=== PATIENT | female | born 1980 | race Caucasian/White ===

== ENCOUNTER 2016-09-09 18:22 | Emergency (ER) | payer BC ==
[~2016-09-09] VITALS: Ht 162.6 cm; Wt 118.6 kg
[~2016-09-09 18:22] MED LIST: HMLI SC; INSUINJ SC; SERT25TA PO; [UNRECOGNIZED DRUG - CODE] PO
[2016-09-09 18:25] VITALS: TEMP 37.1; Ht 162.6 cm; Wt 118.6 kg
[2016-09-09] MEDS ORDERED: ALUMINUM/MAGNESIUM SUSP 30 ML UDC PO STA (18:32)
[2016-09-09] MEDS ORDERED: RANITIDINE HCL 150 MG TAB PO STA (18:32)
[2016-09-09] MEDS ORDERED: ACETAMINOPHEN 325 MG TAB PO STA (18:32)
[2016-09-09] MEDS ORDERED: SODIUM CHLORIDE 0.9% 1000ML 1,000 ML IV STA (18:32)
--- NOTE | 2016-09-09 18:48 | EMERGENCY ROOM VISIT NOTE ---
History Report prepared by [place]: Aubrey Sandoval Under the Supervision of: Dr. Sathish Aponte M.D. First contact with patient: 18:29 Chief Complaint: GI ASSESSMENT Stated Complaint: NAUSEA,STOMACH PRESSURE,CHEST PRESSURE History of Present Illness The patient is a 35 year old female who presents to the Emergency Room with complaints of constant chest "pressure" beginning today. She is 10 weeks . This is her fourth . She has had two successful births. The patient states that her symptoms began with diarrhea and an abdominal "pressure " in the upper abdomen, which moved into her chest. Her abdominal pressure was resolved after taking Gas-X, and her diarrhea has improved. She denies any fevers, vomiting, or urinary symptoms. The patient rates her current discomfort as a 5/10 in severity. She also complains of SOB, and hand tingling. She is unsure if her symptoms are related to anxiety. The patient notes that her children have had a stomach bug this past week. She notes that she cannot seem to get enough sleep--she is always tired. She has a history of type II diabetes , and a cholecystectomy. Source of History: patient Onset: today Position: chest Symptom Intensity: 5/10 in severity Quality: pressure Timing: constant Associated Symptoms: + SOB, + abdominal pain (resolved "pressure"), + diarrhea (improving), No fevers, No urinary symptoms, No vomiting Note: The patient also complains of hand tingling. Review of Systems See HPI for pertinent positives & negatives. A total of 10 systems reviewed and were otherwise negative. Past Medical & Surgical Medical Problems: (1) Diab Blanca Wo Compl, Type Ii Or Unspec Type, Not Uncntrld (2) Elective induction of labor planned (3) Morbid obesity (4) Non-reactive NST (non-stress test) Family History No pertinent family history stated. Social History Smoking Status: Never Smoker Alcohol Use: none Drug Use: none Marital Status: Housing Status: lives with family Occupation Status: employed Current/Historical Medications Scheduled Insulin Aspart (Novolog), 10 UNITS SQ QPM Insulin Human NPH (Novolin N), 60 UNITS SQ HS Vit W/ Ferrous Fumara ( Low Iron), 1 TAB PO DAILY Allergies Coded Allergies: Penicillins (Verified Allergy, Unknown, 04/03/15) Physical Exam Vital Signs Date Time Temp Pulse Resp B/P Pulse Ox O2 Delivery O2 Flow Rate FiO2 5/25/17 20:18 77 17 121/67 99 Room Air 09/09/16 19:07 87 09/09/16 18:25 37.1 100 20 123/84 100 Room Air Physical Exam GENERAL: Patient is in no acute distress. HEENT: No acute trauma, normocephalic atraumatic, mucous membranes moist, no nasal congestion, no scleral icterus. NECK: No stridor, no adenopathy, no meningismus, trachea is midline. LUNGS: Clear to auscultation bilaterally, no wheeze, no rhonchi, breath sounds equal. HEART: Without murmurs gallops or rubs, regular rate and rhythm. CHEST: Tender to the low mid-sternal chest wall. ABDOMEN: Soft, mildly tender in the epigastrium, bowel sounds positive, no hernias, no peritonitis. EXTREMITIES: No cyanosis or edema, full range of motion of all the joints without pain or difficulty, no signs for acute trauma. NEUROLOGIC: Oriented x 3, no acute motor or sensory deficits, no focal weakness. SKIN: No rash, no jaundice, no diaphoresis. Medical Decision & Procedures ER Provider Diagnostic Interpretation: X-ray results as stated below per interpretation by me and the radiologist: CHEST ONE VIEW PORTABLE FINDINGS: The bones soft tissues and hemidiaphragms are normal. The cardiomediastinal silhouette is normal. The lungs are clear. The pulmonary vasculature is normal. IMPRESSION: Negative chest. Electronically signed by: Erick Wang M.D. Urine Dip reveals no blood, or infection. Laboratory Results 09/09/16 18:57 09/09/16 18:57 Test 09/09/16 18:57 Red Blood Count 4.53 M/uL (4.2-5.4) Mean Corpuscular Volume 80.8 fL (80-100) Mean Corpuscular Hemoglobin 27.8 pg (25-34) Mean Corpuscular Hemoglobin Concent 34.4 g/dl (32-36) RDW Standard Deviation 43.9 fL (36.4-46.3) RDW Coefficient of Variation 15.0 % (11.5-14.5) Mean Platelet Volume 10.4 fL (7.4-10.4) Anion Gap 7.0 mmol/L (3-11) Est Creatinine Clear Calc Drug Dose 189.6 ml/min Estimated GFR () 143.6 Estimated GFR (Non- 123.9 BUN/Creatinine Ratio 10.1 (10-20) Calcium Level 7.3 mg/dl (8.5-10.1) Total Bilirubin 0.3 mg/dl (0.2-1) Aspartate Amino Transf (AST/SGOT) 18 U/L (15-37) Alanine Aminotransferase (ALT/SGPT) 35 U/L (12-78) Alkaline Phosphatase 72 U/L (45-117) Troponin I < 0.015 ng/ml (0-0.045) Total Protein 6.9 gm/dl (6.4-8.2) Albumin 3.0 gm/dl (3.4-5.0) Globulin 3.9 gm/dl (2.5-4.0) Albumin/Globulin Ratio 0.8 (0.9-2) Lipase 111 U/L (73-393) Laboratory results reviewed by me. Medications Administered Medications (Trade) Dose Ordered Sig/Lexi Route Start Time Stop Time Status Last Admin Dose Admin Sodium Chloride (Nss 1000ml) 1,000 ml @ 999 mls/hr Q1H1M STAT IV 09/09/16 18:32 09/09/16 19:32 DC 09/09/16 18:32 999 MLS/HR Ranitidine HCl (zANTac TAB) 150 mg NOW STAT PO 09/09/16 18:32 09/09/16 18:36 DC 09/09/16 19:18 150 MG Al Hydroxide/Mg Hydroxide (Maalox Susp) 30 ml NOW STAT PO 09/09/16 18:32 09/09/16 18:36 DC 09/09/16 19:18 30 ML Acetaminophen (Tylenol Tab) 650 mg NOW STAT PO 09/09/16 18:32 09/09/16 18:36 DC 09/09/16 19:18 650 MG ECG Indication: chest pain Rate (beats per minute): 93 Rhythm: normal sinus Findings: no ectopy, other (Poor R-wave progression. Possible old inferior infarct. ) ED Course 1831: The patient was evaluated in room C8. A complete history and physical exam was performed. 1831: Ordered Tylenol Tab 650 mg PO, Maalox Susp 30 mL PO, Zantac Tab 150 mg PO , Sodium Chloride 1000 ml @ 999 mls/hr IV. 2007: Reevaluated the patient. Discussed results and discharge instructions: she verbalized understanding and agreement. The patient is ready for discharge. Medical Decision The patient is a 35 year old female who presents to the ED with complaints of chest "pressure". Differential diagnoses considered include viral illness, reflux, gastritis, pancreatitis, musculoskeletal pain, intestinal colic, dehydration, and electrolyte imbalance. There is no leukocytosis or concerning anemia. No significant electrolyte abnormality or kidney failure. There is no hepatitis or pancreatitis. Urine dip does not show evidence for infection. EKG shows a sinus rhythm, no acute ischemia. Cardiac enzyme testing 1 is not consistent with acute cardiac injury. Chest film shows no free air, mediastinal widening or pneumothorax. The patient was given oral Maalox, oral Zantac, oral Tylenol. She received IV saline. She feels improved. The patient likely is having some reflux or stomach upset. Part of her presentation may be viral as she has had some diarrhea. She was reassured. She is being discharged home with antacids. Impression Primary Impression: Epigastric abdominal pain Scribe Attestation The scribe's documentation has been prepared under my direction and personally reviewed by me in its entirety. I confirm that the note above accurately reflects all work, treatment, procedures, and medical decision making performed by me. Departure Information Dispostion Home / Self-Care Referrals No Doctor, Assigned (PCP) Forms HOME CARE DOCUMENTATION FORM, IMPORTANT VISIT INFORMATION Patient Instructions My [facility] [employer] Additional Instructions bland diet---crackers, soup, toast, gatorade zantac as directed otc for symptoms may use maalox otc as well tylenol for pain return if worsening lab testing, heart testing and imaging was all ok today
--- NOTE | 2016-09-09 18:54 | DIAGNOSTIC IMAGING REPORT ---
CHEST ONE VIEW PORTABLE CLINICAL HISTORY: CHEST PAIN dyspnea COMPARISON STUDY: No previous studies for comparison. FINDINGS: The bones soft tissues and hemidiaphragms are normal. The cardiomediastinal silhouette is normal. The lungs are clear. The pulmonary vasculature is normal. IMPRESSION: Negative chest. Electronically signed by: Erick Wang M.D. 09/09/2016 6:52 PM Dictated Date/Time: 09/09/2016 6:52 PM
[2016-09-09 19:07] LABS: HEMATOCRIT 36.6 % (37-47); MEAN CELL VOLUME 80.8 fL (80-100); MEAN CORPUSCULAR HEMOGLOBIN 27.8 pg (25-34); MEAN CORPUSCULAR HGB CONC 34.4 g/dl (32-36); MEAN PLATELET VOLUME 10.4 fL (7.4-10.4); PLATELET COUNT 137 K/uL (130-400); RED BLOOD COUNT 4.53 M/uL (4.2-5.4); WHITE BLOOD COUNT 5.27 K/uL (4.8-10.8)
[2016-09-09] MEDS ORDERED: NVLNI SQ (19:13)
[2016-09-09] MEDS ORDERED: NVLG SQ (19:13)
[2016-09-09 19:23] LABS: ALT/SGPT 35 U/L (12-78); AST/SGOT 18 U/L (15-37); BLOOD UREA NITROGEN 5 mg/dl (7-18); BUN/CREATININE RATIO 10.1 (10-20); CALCIUM 7.3 mg/dl (8.5-10.1); CARBON DIOXIDE 25 mmol/L (21-32); CHLORIDE 107 mmol/L (98-107); CREATININE 0.53 mg/dl (0.60-1.20); GLUCOSE 126 mg/dl (70-99); POTASSIUM 3.3 mmol/L (3.5-5.1); SODIUM 139 mmol/L (136-145)
[2016-09-09 19:28] LABS: ALB/GLOB RATIO 0.8 (0.9-2); ALKALINE PHOSPHATASE 72 U/L (45-117)
[2016-09-09 20:18] VITALS: BP 121/67; PULSE 77; O2SAT 99
== END 2016-09-09 20:26 | disposition home or self-care (01) ==
LOC: C.EDB 18:22 → C.EDC 20:26
DX: R10.13 Epigastric pain (principal); O26.891 Other specified pregnancy related conditions, first trimester; Z3A.10 10 weeks gestation of pregnancy; O24.111 Pre-existing type 2 diabetes mellitus, in pregnancy, first trimester; E11.9 Type 2 diabetes mellitus without complications; O99.210 Obesity complicating pregnancy, unspecified trimester; E66.01 Morbid (severe) obesity due to excess calories; Z79.4 Long term (current) use of insulin; Z79.899 Other long term (current) drug therapy

== ENCOUNTER → 2016-09-24 | Outpatient (CLI) | payer BC ==
[~2016-09-24] MED LIST changes: -HMLI SC; -INSUINJ SC; +NVLG SQ; +NVLNI SQ; -SERT25TA PO
[2016-09-27 11:57] LABS: MANUAL MICROSCOPIC REQUIRED? NO; REVIEW REQ? YES; URINE APPEARANCE CLOUDY (CLEAR); URINE COLOR YELLOW
[2016-09-27 11:58] LABS: URINE BILIRUBIN NEG (NEG); URINE NITRITE NEG (NEG); URINE SPECIFIC GRAVITY 1.032 (1.000-1.030); UROBILINOGEN NEG (NEG)
== END | disposition home or self-care (01) ==
LOC: C.LABSPEC 11:22
PROVIDERS: ATTEND Obstetrics & Gynecology
DX: O09.529 Supervision of elderly multigravida, unspecified trimester (principal); Z3A.00 Weeks of gestation of pregnancy not specified

== ENCOUNTER → 2016-12-14 | Outpatient (CLI) | payer BC ==
[2016-12-15 07:58] LABS: ESTIMATED AVERAGE GLUCOSE 111 mg/dl; HA1C FLAG Normal (Normal)
== END | disposition home or self-care (01) ==
LOC: C.LAB1850 16:47
PROVIDERS: ATTEND Internal Medicine Endocrinology, Diabetes & Metabolism
DX: O24.919 Unspecified diabetes mellitus in pregnancy, unspecified trimester (principal); Z3A.00 Weeks of gestation of pregnancy not specified

== ENCOUNTER → 2017-01-14 | Outpatient (CLI) | payer BC ==
[2017-01-14 17:56] LABS: URINE APPEARANCE CLEAR (CLEAR); URINE BILIRUBIN NEG (NEG); URINE COLOR YELLOW; URINE EPITHELIAL CELL AUTO 20-30 /lpf (0-5); URINE NITRITE NEG (NEG); URINE PH 6.5 (4.5-7.5); URINE SPECIFIC GRAVITY 1.031 (1.000-1.030); UROBILINOGEN NEG (NEG)
[2017-01-14 18:08] LABS: MANUAL MICROSCOPIC REQUIRED? NO; REVIEW REQ? YES
== END | disposition home or self-care (01) ==
LOC: C.LABSPEC 17:26
PROVIDERS: ATTEND Obstetrics & Gynecology
DX: O09.92 Supervision of high risk pregnancy, unspecified, second trimester (principal); Z3A.00 Weeks of gestation of pregnancy not specified

== ENCOUNTER → 2017-02-21 | Outpatient (CLI) | payer BC ==
[2017-02-21 13:13] LABS: PATIENT HEIGHT 162.6 cm
[2017-02-21 15:08] LABS: URINE TOTAL PROTEIN 23.3 mg/dl (0-11.9)
[2017-02-22 05:22] LABS: URINE TOTAL PROTEIN CALC 221.4 mg/24 hr (0-149.1)
[2017-02-22 05:23] LABS: CREATININE 0.49 mg/dl (0.6-1.2)
== END | disposition home or self-care (01) ==
LOC: C.LAB1850 12:56
PROVIDERS: ATTEND Obstetrics & Gynecology
DX: O24.913 Unspecified diabetes mellitus in pregnancy, third trimester (principal)

== ENCOUNTER 2017-02-25 17:10 | Outpatient (CLI) | payer BC | END 2017-02-25 17:50 | disposition home or self-care (01) | LOC: C.OPB 17:10 → C.LD 17:49 → C.OPB 17:49 | PROVIDERS: ATTEND Obstetrics & Gynecology | DX: O24.419 Gestational diabetes mellitus in pregnancy, unspecified control (principal); Z3A.00 Weeks of gestation of pregnancy not specified ==

== ENCOUNTER → 2017-02-25 | Outpatient (CLI) | payer BC ==
[2017-02-25 17:33] LABS: HEMATOCRIT 35.2 % (37-47)
== END | disposition home or self-care (01) ==
LOC: C.LAB1850 16:59
PROVIDERS: ATTEND Obstetrics & Gynecology
DX: O09.92 Supervision of high risk pregnancy, unspecified, second trimester (principal)

== ENCOUNTER → 2017-03-14 | Outpatient (CLI) | payer BC | END | disposition home or self-care (01) | LOC: C.LABSPEC 16:52 | PROVIDERS: ATTEND Obstetrics & Gynecology | DX: O24.913 Unspecified diabetes mellitus in pregnancy, third trimester (principal); Z3A.00 Weeks of gestation of pregnancy not specified ==

== ENCOUNTER 2017-03-30 08:00 | Inpatient (IN) | payer BC ==
[~2017-03-30] VITALS: Ht 162.6 cm; Wt 129.5 kg
[2017-03-30 08:37] VITALS: Ht 162.6 cm; Wt 129.5 kg
[2017-03-30] MEDS ORDERED: LACTATED RINGER'S 1000ML 500 ML IV PRN ×2 (09:17→16:00)
[2017-03-30] MEDS ORDERED: OXYTOCIN 30 UNITS/500ML NSS IV PRN ×2 (09:30→20:45)
[2017-03-30] MEDS: LACTATED RINGER'S 1000ML 1,000 ML IV SCH ×2 (10:04→15:21)
[2017-03-30 10:10] LABS: HEMATOCRIT 34.8 % (37-47); HEMOGLOBIN 11.4 g/dL (12.0-16.0); MEAN CELL VOLUME 81.3 fL (80-100); MEAN CORPUSCULAR HEMOGLOBIN 26.6 pg (25-34); MEAN CORPUSCULAR HGB CONC 32.8 g/dl (32-36); MEAN PLATELET VOLUME 11.2 fL (7.4-10.4); PLATELET COUNT 156 K/uL (130-400); RED CELL DISTRIBUTION WIDTH CV 16.3 % (11.5-14.5); RED CELL DISTRIBUTION WIDTH SD 48.5 fL (36.4-46.3); WHITE BLOOD COUNT 9.53 K/uL (4.8-10.8)
[2017-03-30] MEDS ORDERED: SERT25TA PO (10:22)
[2017-03-30] MEDS ORDERED: BUPIVACAINE 0.25% 30 ML VIAL ONE (14:55)
[2017-03-30] MEDS ORDERED: EpHEDrine SULFATE INJ 50 MG/ML AMP ONE (14:55)
[2017-03-30] MEDS ORDERED: FENTANYL 2MCG/ML ROPIV 1.25MG/ML 100ML BAG EPI ONE (14:56)
[2017-03-30] MEDS ORDERED: FENTANYL CITRATE INJ 50 MCG/1 ML 2 ML VIAL ONE (14:56)
[2017-03-30] MEDS ORDERED: DEXTROSE 50% 50 ML SYR IV PRN (15:30)
[2017-03-30] MEDS ORDERED: SODIUM CHLORIDE 0.9% 1000ML 1,000 ML IV SCH (15:30)
[2017-03-30] MEDS ORDERED: DEXTROSE 5% 1000ML 1,000 ML IV SCH (15:30)
[2017-03-30] MEDS ORDERED: NALOXONE HCL INJ 0.4 MG/1 ML VIAL/CARP IV PRN (16:00)
[2017-03-30] MEDS ORDERED: EpHEDrine SULFATE INJ 50 MG/ML AMP IV PRN (16:00)
[2017-03-30] MEDS: FENTANYL 2MCG/ML ROPIV 1.25MG/ML 100ML BAG EPI PRN ×2 (19:08→19:50)
[2017-03-30] MEDS ORDERED: NURSING VERBAL MED ORDER ONE (20:00)
[2017-03-30] MEDS ORDERED: HYDROCORTISONE ACETATE 25 MG SUPP PR PRN (20:45)
[2017-03-30] MEDS ORDERED: OXYCODONE/ACETAMINOPHEN 5-325 TAB PO PRN (20:45)
[2017-03-30] MEDS ORDERED: BENZOCAINE 20% AER SPR 82.5 GM CAN EXT PRN (20:45)
[2017-03-30] MEDS ORDERED: SUPERCREAM 0.870 % 15GM JAR EXT PRN (20:45)
[2017-03-30] MEDS ORDERED: LANOLIN OINT EXT PRN (20:45)
--- NOTE | 2017-03-30 23:54 | DELIVERY SUMMARY ---
DATE OF OPERATION: 03/30/2017 PREDELIVERY DIAGNOSES: 1. A 36-year-old G4, P2-0-1-2 at 39 weeks 1 day. 2. Induction of labor secondary to diabetes type 2. 3. Obesity. 4. Advanced maternal age. POSTOPERATIVE DIAGNOSES: Same. PROCEDURE: Spontaneous vaginal delivery and repair of first degree perineal laceration. ESTIMATED BLOOD LOSS: 300 mL. FINDINGS: Viable female . Apgars 8 and 9. Weight pending, please see nursery records. DESCRIPTION OF DELIVERY: The patient progressed to complete with epidural anesthesia. She then began to push. She spontaneously vaginally delivered a viable female from a cephalic presentation with the head in left occiput anterior position. The head delivered followed by the anterior shoulder, followed by the posterior shoulder, followed by the body. No nuchal cord was noted. The baby was placed on mother's abdomen and a spontaneous cry was heard. Delayed cord clamping was employed after 1 minutes and cessation of pulsation of the cord. The cord was doubly clamped and cut. Cord blood was obtained. The placenta was then delivered spontaneously intact with a 3-veseel cord. Pitocin was given. The uterus became firm. The uterus and vagina were soaked of all clots and debris. The cervix and perineum were inspected and a first degree perineal laceration was noted and repaired in standard fashion with 3-0 Vicryl in a running stitch. Excellent hemostasis was observed. The bladder was emptied using a red rubber catheter to further ensure hemostasis. The mother and baby tolerated the delivery well. Sponge, instrument and needle counts were correct at the conclusion of the delivery x2. I attest to the content of the Intraoperative Record and any orders documented therein. Any exception s are noted below.
[2017-03-31] VITALS (7 sets, daily range): BP systolic 108–145; BP diastolic 73–86; PULSE 79–97; TEMP 36.6–37.4; O2SAT 98
[2017-03-31] MEDS: IBUPROFEN 600 MG TAB PO PRN ×3 (05:08→13:41)
[2017-03-31 06:52] LABS: HEMATOCRIT 33.5 % (37-47); HEMOGLOBIN 10.8 g/dL (12.0-16.0)
--- NOTE | 2017-03-31 07:21 | Progress Note ---
Subjective Mar 31, 2017. Subjective conversation w/ patient, physical exam Ambulation: ambulating normally Voiding: no voiding problems Passing Gas: Yes Diet Tolerance: Regular Diet Lochia: Moderate Feeding Type: Breast Feeding Pain: CONTROLLED Review of Systems Respiratory: No shortness of breath Cardiac: No chest pain Female : No dysuria Objective Vital Signs Date Time Temp Pulse Resp B/P (MAP) Pulse Ox O2 Delivery O2 Flow Rate FiO2 03/31/17 04:20 36.9 93 18 124/86 (99) Room Air 03/31/17 00:25 37.4 97 18 109/74 (86) Room Air 03/31/17 00:25 Room Air Physical Exam General Appearance: WELL-APPEARING, WD/WN, NO APPARENT DISTRESS Respiratory/Chest: lungs clear, normal breath sounds, no respiratory distress Cardiovascular: regular rate, rhythm, no gallop Abdomen: normal bowel sounds, soft Fundus: Firm, Non-Tender, Relation to Umbilicus (AT u) Extremities: non-tender, normal inspection Laboratory Results Last 24 Hours Test 03/30/17 09:08 03/30/17 09:33 03/30/17 10:09 03/30/17 11:08 Bedside Glucose 94 mg/dl 105 mg/dl 90 mg/dl White Blood Count 9.53 K/uL Red Blood Count 4.28 M/uL Hemoglobin 11.4 g/dL Hematocrit 34.8 % Mean Corpuscular Volume 81.3 fL Mean Corpuscular Hemoglobin 26.6 pg Mean Corpuscular Hemoglobin Concent 32.8 g/dl RDW Standard Deviation 48.5 fL RDW Coefficient of Variation 16.3 % Platelet Count 156 K/uL Mean Platelet Volume 11.2 fL Test 03/30/17 12:07 03/30/17 13:09 03/30/17 14:07 03/30/17 15:18 Bedside Glucose 78 mg/dl 71 mg/dl 73 mg/dl 66 mg/dl Test 03/30/17 16:08 03/30/17 17:06 03/30/17 18:22 03/30/17 19:13 Bedside Glucose 82 mg/dl 76 mg/dl 74 mg/dl 81 mg/dl Test 03/31/17 06:26 Hemoglobin 10.8 g/dL Hematocrit 33.5 % Assessment and Plan Post- Day#: 1 Continue Routine Care: delivered 39-1 12/13 2210 A+/GBS-/RI Hgb 11.4, 10.8 Pt doing well clinically, desires to dc tomorrow. Continue routine care, monitor lochia, encourage ambulation, control pain with motrin/tylenol. XAVI AJ FMR PGY1 Resident Physician Supervision Note: I was present with Dr. Aj during the history and exam. I discussed the case with the resident and agree with the findings and plan as documented in the note. Any exceptions or clarifications are listed here: PPD#1 doing well. Routine care. Documented By: Maribel Mahan Resident Tracking Resident Involvement: Resident Care Provided Care Provided: OB Delivery
[2017-03-31] MEDS: DOCUSATE SODIUM 100 MG CAP PO SCH ×2 (09:06→19:33)
--- NOTE | 2017-03-31 09:31 | Anesthesia Procedure Note ---
Anesthesia Epidural Removal Nt Date & Time Mar 31, 2017 at 09:31 Vital Signs Pain Intensity: 3.0 Vital Signs Past 12 Hours Date Time Temp Pulse Resp B/P (MAP) Pulse Ox O2 Delivery O2 Flow Rate FiO2 03/31/17 04:20 36.9 93 18 124/86 (99) Room Air 03/31/17 00:25 37.4 97 18 109/74 (86) Room Air 03/31/17 00:25 Room Air Notes Mental Status: alert / awake / arousable, participated in evaluation Nausea / Vomiting: adequately controlled Pain: adequately controlled Airway Patency, RR, SpO2: stable & adequate BP & HR: stable & adequate Hydration State: stable & adequate Neuraxial Anesthesia: was administered Anesthetic Complications: no major complications apparent, pt satisfied with anesthetic care Epidural: removed without complications, with tip intact
[2017-03-31] MEDS ORDERED: INSULIN REGULAR 250 UNITS in SODIUM CHLORIDE 0.9% 250ML 250 ML IV PRN (11:30)
--- NOTE | 2017-03-31 19:25 | NUR ---
Met with parents and baby at 1900 to offer assistance with/information about . Baby asleep in crib. Mother reported a history of nursing her first child who is now three, for one year with no problems and a good milk supply. With her second child who is now two, mother developed a thickening in her left breast behind the nipple at four months which was diagnosed by ultrasound as a galactocele. Mother stated that her second child would not nurse well from that breast and that her milk dried up, then her left breast also dried up. Mother saw Starla Medina IBCLC who thought that the right breast might take over milk production. With this , mother reported that the nursing is going well on the right breast, the baby will latch on the left but does not sustain latch for long. Encouraged mother to offer the right breast first and then the left. Claudia Thomas RN, IBCLC
[2017-03-31] MEDS ORDERED: BISACODYL 5 MG TABEC PO SCH (20:00)
[2017-04-01] MEDS: IBUPROFEN 600 MG TAB PO PRN (05:59)
--- NOTE | 2017-04-01 07:11 | Progress Note ---
Subjective Apr 01, 2017. Subjective conversation w/ patient, physical exam, chart review, lab review Ambulation: ambulating normally Voiding: no voiding problems Passing Gas: Yes Diet Tolerance: Regular Diet (diabetic diet) Lochia: Moderate Feeding Type: Breast Feeding Pain: controlled Review of Systems Respiratory: No shortness of breath Abdomen: No vomiting Female : No dysuria Objective Vital Signs Date Time Temp Pulse Resp B/P (MAP) Pulse Ox O2 Delivery O2 Flow Rate FiO2 03/31/17 23:30 Room Air 03/31/17 23:30 36.8 83 18 115/80 (92) Room Air 03/31/17 20:00 36.6 88 18 131/86 (101) Room Air 03/31/17 20:00 Room Air 03/31/17 15:35 Room Air 03/31/17 15:35 36.8 91 18 120/86 (97) Room Air 03/31/17 11:35 36.9 90 18 145/83 (103) Room Air 03/31/17 07:35 98 Room Air 03/31/17 07:35 36.9 79 16 108/73 (85) 98 Room Air Physical Exam General Appearance: WELL-APPEARING, WD/WN, NO APPARENT DISTRESS, obese Respiratory/Chest: lungs clear, normal breath sounds, no respiratory distress Cardiovascular: regular rate, rhythm, no gallop Abdomen: normal bowel sounds, soft Fundus: Firm, Non-Tender, Relation to Umbilicus (2 below u) Extremities: non-tender, normal inspection Assessment and Plan Post- Day#: 2 Continue Routine Care: delivered 39-1 03/30 2210 A+/GBS-/RI Hgb 11.4, 10.8 Pt doing well clinically, counselled on dc instructions. Answered all questions. Continue routine care, monitor lochia, encourage ambulation, control pain with motrin/tylenol. XAVI AJ FMR PGY1 Resident Physician Supervision Note: I interviewed and examined the patient. Discussed with Dr. Aj and agree with findings and plan as documented in the note. Any exceptions or clarifications are listed here: [None] Documented By: Anurag Woods Resident Tracking Resident Involvement: Resident Care Provided Care Provided: OB Delivery
--- NOTE | 2017-04-01 07:14 | Discharge Instructions ---
Discharge Instructions Date of Service Apr 01, 2017. Admission Reason for Admission: Induction Discharge Discharge Diagnosis / Problem: Spontaneous vaginal delivery Discharge Goals Goal(s): Routine recovery after delivery Medications Continue Dispensed Medications: supercream, dermaplast, tucks, lansinoh Activity Recommendations Activity Limitations: per Instructions/Follow-up section . Instructions / Follow-Up Instructions / Follow-Up Please make appointment with your pcp who manages your diabetes in the next 1-2 weeks to discuss commencing medical management of your diabetes. ACTIVITY RECOMMENDATIONS: * Gradual return to full activity over the next 2-3 weeks. * No lifting - nothing heavier than baby over the next 2-3 weeks. * Do not engage in vigorous exercise, sexual activity or sports until cleared by your physician. * Do not drive or operate any motorized equipment until cleared by your physician. * You may shower/bathe daily. MEDICATIONS: For discomfort or pain, you may use Acetaminophen (Tylenol), Ibuprofen (Advil), or Naproxen (Aleve) following the package directions. For constipation you may use Colace following the package directions. BREAST CARE: If you are not breast feeding: * Wear a supportive bra 24 hours a day for one to two weeks. * Avoid stimulating your breasts and nipples as much as possible during the first few weeks after delivery. * When taking a shower, have the warm water hit your back, not breasts. * When your breasts feel full, apply ice packs. Usually three to four times a day helps ease the discomfort. * Take a mild pain medication (Tylenol / Motrin) when you are uncomfortable. If breast feeding: * Use breast milk to lubricate nipples. Lansinoh cream may be used for sore nipples. You do not need to remove cream prior to breast feeding. If using a different brand of cream, check the label for directions regarding removal of cream prior to nursing. * Wear a supportive bra. * If having problems with breasts or breast feeding, call a philatelic consultant or your health care provider. EPISIOTOMY CARE: After delivery, if you have an episiotomy (stitches), the following steps will ease discomfort and aid healing. * For the first 24 hours after delivery, place ice packs next to your episiotomy to help reduce swelling. * After the first 24 hour-period, sitz baths, either portable or in the tub, are suggested. A shower with a shower arm sprayed over the episiotomy may be comforting. * Leigh Ann care should be done after each voiding and bowel movement. Squirt warm water from a plastic bottle over the perineum (region of the body between the anus and urinary opening) and pat dry. * Use Dermoplast to ease discomfort. Shake container. [place] directly over the episiotomy. Place a Tucks on a clean sanitary pad next to your episiotomy. SPECIAL CARE INSTRUCTIONS: When you are discharged from the hospital, it is important for you to follow the instructions listed below: * During the first week at home, you should be able to care for yourself and your baby. In addition, the usual light household activities are encouraged. * Limit your activities to the way you feel. Do not try to clean the house or move furniture. Be sensible. * If you actively engage in sports and have done so up until the time of your delivery, you may resume these activities as soon as you feel able. This may take up to one month or even longer. Use good judgment. * Continue to take your vitamins for at least six weeks after the of your baby. * Your diet need not be limited unless you were on a special diet before your delivery. Breast-feeding mothers need around 2500 calories per day and at least 64-80 ounces of fluid per day (8 to 10 glasses). * You should eat foods from the four major food groups. Crash diets or fad diets are to be avoided. Eating lean meats, fresh fruits and vegetables, low-fat dairy products, high fiber foods and a regular exercise program, will help you get back to your pre- weight without putting your health at risk. * Constipation is sometimes a problem after delivery. Take a mild laxative as needed. If breast feeding, Milk of Magnesia is acceptable to use. You may use a suppository or Fleets enema if no episiotomy. * A daily shower or tub bath is suggested. Be sure to thoroughly and gently dry the perineum. * A bloody vaginal discharge will usually continue until around four weeks post . A small amount of bleeding may continue for as long as six weeks. Vaginal discharge changes from the bright red bleeding after delivery to pink then brownish and finally yellowish-pink before becoming white and disappearing. * Bleeding may increase with activity. Your first period may come in 4-8 weeks. If you are breast feeding, your period may be delayed even longer. * [place] (sex) can begin whenever both you and your partner feel comfortable and do not have any form of genital infection. It is recommended that you wait at least six weeks for internal and external healing to occur. If you have questions, please talk to your health care practitioner. A condom should be used to prevent infection and . * Foreplay, gentle intercourse and lubrication is very important the first several times to prevent pain. A water-based lubricant such as K-Y jelly or Astroglide may be used. * If you have RH negative blood and your baby is RH positive, you will receive RHOGAM by injection prior to discharge. The nurse will give you a card to keep with you that has the date and place that you received RHOGAM after delivery. * During your care, you had a Rubella screen done to check for the presence of rubella antibodies in your blood. If your test was negative, you will receive a Rubella vaccine prior to discharge. This vaccine may cause a fever, soreness at the injection site and flu-like symptoms. If these symptoms persist, notify your health care practitioner. is not advised for one month after a Rubella vaccine. * Verbalizes understanding of car seat law as reviewed with patient nursing. * Car Seat hand-out given and reviewed with patient by nursing. * Shaken baby information reviewed with patient by nursing. Call you doctor if: * Heavy bleeding (saturating several pads an hour) or passing clots the size of your fist. * A fever >101 degrees F (38.3 degrees C) on two occasions four hours apart and /or chills. * Unusual pain in the pelvic or vaginal areas. * "Baby Blues" lasting longer than two weeks. If you have any questions or concerns, call your health care practitioner at . FOLLOW UP VISIT: * Please call the office at to schedule a 6 week examination. It is important you keep this appointment. It is important for you to make arrangements for either yearly or twice yearly check-ups thereafter. Current Hospital Diet Patient's current hospital diet: Regular OB Diet Discharge Diet Recommended Diet: Diabetes Type 2 Diet Pending Studies Studies pending at discharge: no Medical Emergencies . Who to Call and When: Medical Emergencies: If at any time you feel your situation is an emergency, please call 911 immediately. . Non-Emergent Contact Non-Emergency issues call your: Primary Care Provider . . "Provider Documentation" section prepared by Yady Aj. . VTE Core Measure Inpt VTE Proph given/why not?: Treatment not indicated
[2017-04-01 07:40] VITALS: BP 126/89; PULSE 77; TEMP 36.4
[2017-04-01 08:08] VITALS: BP_DIAS 89; PULSE 77; TEMP 36.4
[2017-04-01] MEDS: DOCUSATE SODIUM 100 MG CAP PO SCH (08:17)
--- NOTE | 2017-04-04 06:45 | EDITING REQUIRED CODING QUERY ---
CODING QUERY To promote full compliance with coding requirements relating to patient care, provider participation is requested in all cases of director style uncertainty. Please assist us with the question(s) below: Coding Question(s): Please clarify below, regarding the Diabetes Type 2 as GDM is documented on the OP Progress Note and Diabetes Type 2 is documented on the Delivery Note. ( X ) This is Pre-existing Diabetes Type 2 ( ) This is Gestational Diabetes Physician's Response(s): Thank you Colleen Camacho Principal Diagnosis: "_that condition established after study, to be chiefly responsible for occasioning the admission of the patient to the hospital for care." Co-Existing Principal Diagnosis: "_when two or more diagnoses equally meet the criteria for principal diagnosis as determined by the circumstances of admission, diagnostic work up, and/or therapy provided, and the Alphabetic Index, Tabular List, or another coding guideline does not provide sequencing direction, any one of the diagnoses may be sequenced first." "When the physician has documented what appears to be a current diagnosis in the body of the record, but has not included the diagnosis in the final diagnostic statement, the physician should be asked whether the diagnosis should be added." (Source [facility] QTR90. p3-4)
== END 2017-04-01 14:00 | disposition home or self-care (01) | DRG 774 ==
LOC: C.LD 08:00 → C.OBG 22:58
PROVIDERS: ADMIT Obstetrics & Gynecology; ATTEND Obstetrics & Gynecology
PROC: 0HQ9XZZ Repair Perineum Skin, External Approach (ICD-10-PCS; principal; 2017-03-30)
PROC: 10E0XZZ Delivery of Products of Conception, External Approach (ICD-10-PCS; principal; 2017-03-30)
PROC: 3E033VJ Introduction of Other Hormone into Peripheral Vein, Percutaneous Approach (ICD-10-PCS; 2017-03-30)
PROC: 10903ZC Drainage of Amniotic Fluid, Therapeutic from Products of Conception, Percutaneous Approach (ICD-10-PCS; 2017-03-30)
PROC: 10H073Z Insertion of Monitoring Electrode into Products of Conception, Via Natural or Artificial Opening (ICD-10-PCS; 2017-03-30)
PROC: 4A1H7CZ Monitoring of Products of Conception, Cardiac Rate, Via Natural or Artificial Opening (ICD-10-PCS; 2017-03-30)
DX: O24.12 Pre-existing type 2 diabetes mellitus, in childbirth (principal); Z68.42 Body mass index [BMI] 45.0-49.9, adult; O70.0 First degree perineal laceration during delivery; O99.214 Obesity complicating childbirth; E66.9 Obesity, unspecified; O09.523 Supervision of elderly multigravida, third trimester; O99.344 Other mental disorders complicating childbirth; F32.9 Major depressive disorder, single episode, unspecified; F41.9 Anxiety disorder, unspecified; Z79.899 Other long term (current) drug therapy; Z79.4 Long term (current) use of insulin; Z3A.39 39 weeks gestation of pregnancy; Z37.0 Single live birth

== ENCOUNTER → 2017-05-19 | Outpatient (CLI) | payer BC ==
[~2017-05-19] MED LIST changes: -NVLG SQ; -NVLNI SQ; +SERT25TA PO
== END | disposition home or self-care (01) ==
LOC: C.PAPS 09:10
PROVIDERS: ATTEND Obstetrics & Gynecology
DX: Z39.2 Encounter for routine postpartum follow-up (principal); Z11.51 Encounter for screening for human papillomavirus (HPV)

== ENCOUNTER → 2017-11-29 | Outpatient (CLI) | payer BC | END | disposition home or self-care (01) | LOC: C.LABSPEC 17:39 | PROVIDERS: ATTEND Obstetrics & Gynecology | DX: O24.911 Unspecified diabetes mellitus in pregnancy, first trimester (principal); Z3A.00 Weeks of gestation of pregnancy not specified ==